=== PATIENT | male | born 1955 | race Caucasian/White ===

== ENCOUNTER 2018-06-26 11:11 | Inpatient (IN) | payer OTHER ==
[~2018-06-26 11:11] MED LIST: ACID CONTROLLER20 MG PO; ATORVASTATIN CA40 MG PO; CARVEDILOL3.125 MG PO; COZAAR25 MG PO; LASIX40 MG PO
[2018-06-27] MEDS ORDERED: CARVEDILOL3.125 MG PO (11:58)
[2018-06-27] MEDS ORDERED: ATORVASTATIN CA40 MG PO (11:58)
[2018-06-27] MEDS ORDERED: LASIX40 MG PO (11:59)
[2018-06-27] MEDS ORDERED: OXYC1TAB9 PO (11:59)
[2018-06-27] MEDS ORDERED: COZAAR25 MG PO (11:59)
[2018-06-27] MEDS ORDERED: ACID CONTROLLER20 MG PO (11:59)
[2018-06-27] MEDS ORDERED: ASPIR 8181 MG PO (12:04)
== END 2018-06-27 22:26 | disposition home or self-care (01) | DRG 510 ==
LOC: CIR.AMB 11:11 → MEDJ 14:36
PROVIDERS: Orthopaedic Surgery
PROC: 4A12X4Z Monitoring of Cardiac Electrical Activity, External Approach (ICD-10-PCS; 2018-06-26)
PROC: 5A1D70Z Performance of Urinary Filtration, Intermittent, Less than 6 Hours Per Day (ICD-10-PCS; 2018-06-26)
PROC: 0PSH04Z Reposition Right Radius with Internal Fixation Device, Open Approach (ICD-10-PCS; principal; 2018-06-26 14:00)
DX: S52.571A Other intraarticular fracture of lower end of right radius, initial encounter for closed fracture (principal); N18.6 End stage renal disease; I13.11 Hypertensive heart and chronic kidney disease without heart failure, with stage 5 chronic kidney disease, or end stage renal disease; I25.10 Atherosclerotic heart disease of native coronary artery without angina pectoris; Z99.2 Dependence on renal dialysis